=== PATIENT | male | born 1955 | race Caucasian/White ===

== ENCOUNTER 2021-03-15 01:58 | Emergency (ER) | payer SELFPAY ==
[2021-03-15 02:32] LABS: #Basophils 0.1 thou/uL (0.0-0.2); #Eosinphils 0.4 thou/uL (0.0-0.7); #Lymphocytes 1.6 thou/uL (1.20-3.40); #Monocytes 0.7 thou/uL (0.11-0.59); #Neutrophils 5.2 thou/uL (1.40-6.50); %Basophils 1.1 % (0.0-1.0); %Eosinophils 4.9 % (0.0-10.0); %Monocytes 8.2 % (0.0-10.0); %Neutrophils 65.9 % (42.0-75.0); Hemoglobin 12.3 g/dL (14.0-18.0); Mean Corpuscular HGB CONC 32.8 g/dL (32.0-36.0); Mean Corpuscular Hemoglobin 29.2 pg (27.0-31.0); Mean Corpuscular Volume 89.1 fL (78.0-98.0); Mean Platelet Volume 7.3 fL (7.4-10.4); Platelet Count 233 thou/uL (130-400); RBC Distribution Width 12.5 % (11.5-14.5); White Blood Cell (WBC) Count 7.9 thou/uL (4.8-10.8)
[2021-03-15] MEDS ORDERED: Ibuprofen 200 MG TAB ONE (02:37)
[2021-03-15] MEDS ORDERED: predniSONE 20 MG TAB ONE (02:37)
[2021-03-15 02:53] LABS: ALT (SGPT) 19 U/L (8-55); AST (SGOT) 17 U/L (5-34); Albumin 3.5 g/dL (3.4-4.8); Alkaline Phosphatase 70 U/L (40-110); Anion Gap 11 mmol/L (10-20); BUN (Urea Nitrogen) 22 mg/dL (8.4-25.7); Bilirubin, Total 0.2 mg/dL (0.2-1.2); Calc. Creatinine Clearance 0 mL/min (70-130); Calcium 9.1 mg/dL (7.8-10.44); Carbon Dioxide 27 mmol/L (23-31); Chloride 108 mmol/L (98-107); Globulin 2.5 g/dL (2.4-3.5); Glucose 104 mg/dL (80-115); Sodium 142 mmol/L (136-145)
[2021-03-15] MEDS ORDERED: Acetaminophen 500 MG TAB ONE (03:29)
== END 2021-03-15 04:00 | disposition home or self-care (01) ==
LOC: ERS 01:58
DX: M54.12 Radiculopathy, cervical region (principal); Z87.891 Personal history of nicotine dependence
CPT/HCPCS: 36415; 71045; 80053; 84484; 85025; 93005; J7512

== ENCOUNTER 2022-01-20 03:45 | Inpatient (IN) | payer OTHER ==
[2022-01-20] MEDS ORDERED: Boostrix 0.5 ML (Tdap) VIAL (>/=7 yrs of age) ONE (03:57)
[2022-01-20] MEDS ORDERED: FENTANYL 50 MCG/ML VIAL 50 MCG/ML VIAL ONE ×2 (04:04→05:07)
[2022-01-20 04:14] LABS: #Basophils 0.1 thou/uL (0.0-0.2); #Eosinphils 0.2 thou/uL (0.0-0.7); #Lymphocytes 0.8 thou/uL (1.20-3.40); #Monocytes 0.8 thou/uL (0.11-0.59); #Neutrophils 10.9 thou/uL (1.40-6.50); %Basophils 0.5 % (0.0-1.0); %Eosinophils 1.3 % (0.0-10.0); %Lymphocytes 5.9 % (21.0-51.0); %Neutrophils 86.3 % (42.0-75.0); Hemoglobin 12.8 g/dL (14.0-18.0); Mean Corpuscular HGB CONC 31.9 g/dL (32.0-36.0); Mean Corpuscular Hemoglobin 28.1 pg (27.0-31.0); Mean Platelet Volume 7.3 fL (7.4-10.4); Platelet Count 256 thou/uL (130-400); RBC Distribution Width 12.5 % (11.5-14.5); Red Blood Cell (RBC) Count 4.55 mill/uL (4.70-6.10); White Blood Cell (WBC) Count 12.6 thou/uL (4.8-10.8)
[2022-01-20 04:27] LABS: INR-International Normal Ratio 1.1; Prothrombin Time 14.7 sec (12.0-14.7)
[2022-01-20 04:28] LABS: PTT 30.9 sec (22.9-36.1)
[2022-01-20 04:36] LABS: Acetaminophen Less than 10.0 mcg/mL (10.0-30.0); Alcohol Less than 10 mg/dL (Less than 10); Salicylate Less than 8.0 mg/dL (15.0-30.0)
[2022-01-20 04:38] LABS: ALT (SGPT) 14 U/L (8-55); AST (SGOT) 16 U/L (5-34); Albumin 3.9 g/dL (3.4-4.8); Alkaline Phosphatase 75 U/L (40-110); Anion Gap 12 mmol/L (10-20); BUN (Urea Nitrogen) 15 mg/dL (8.4-25.7); Bilirubin, Total 0.5 mg/dL (0.2-1.2); Calc. Creatinine Clearance 0 mL/min (70-130); Calcium 8.5 mg/dL (7.8-10.44); Carbon Dioxide 23 mmol/L (23-31); Chloride 108 mmol/L (98-107); Estimated GFR 62; Globulin 2.6 g/dL (2.4-3.5); Glucose 125 mg/dL (80-115); Lipase 15 U/L (8-78); Potassium 3.2 mmol/L (3.5-5.1); Protein, Total 6.5 g/dL (5.8-8.1); Sodium 140 mmol/L (136-145)
[2022-01-20 05:05] LABS: Bacteria/HPF None Seen HPF (None Seen); Bilirubin Negative (Negative); Blood, Urine Negative (Negative); Calcium Oxalate Crystals 3+ HPF (None Seen); Clarity Clear (Clear); Glucose, Urine (Dipstick) Normal (Negative); Ketone, Urine Negative (Negative); Leukocyte Negative Leu/uL (Negative); Nitrite Negative (Negative); Protein, Urine (Dipstick) 20 mg/dL (Neg-Trace); RBC/HPF 0-3 HPF (0-3); Specific Gravity, Urine 1.028 (1.002-1.036); Squamous Epithelial 0-3 HPF (0-3); WBC/HPF 0-3 HPF (0-3)
[2022-01-20 05:06] LABS: Urine Culture Reflex No No
[2022-01-20 05:11] LABS: Lactic Acid 1.3 mmol/L (0.5-2.2)
[2022-01-20 05:12] LABS: Amphetamine Detected (NotDetected); Barbiturates Screen Not Detected (NotDetected); Benzodiazepine Screen Not Detected (NotDetected); Cocaine Metabolite Screen Not Detected (NotDetected); Methadone Not Detected (NotDetected); Methamphetamine Detected (NotDetected); Opiate Screen Not Detected (NotDetected); Oxycodone Screen Not Detected (NotDetected); Phencyclidine (PCP) Not Detected (NotDetected); THC/Cannabinoid Screen Not Detected (NotDetected); Tricyclic Screen Not Detected (NotDetected)
[2022-01-20 05:15] LABS: Magnesium 2.1 mg/dL (1.6-2.6); Phosphorus 2.1 mg/dL (2.3-4.7)
[2022-01-20] MEDS ORDERED: Dextrose 50% Abboject 50 ML SYRINGE SLOW IVP PRN (05:59)
[2022-01-20] MEDS ORDERED: TETANUS, DIPHTHERIA TOX,ADULT (TDVAX) 0.5 ML VIAL IM ONE (05:59)
[2022-01-20] MEDS ORDERED: Ondansetron PF 4 MG/2 ML Vial IVP PRN (05:59)
[2022-01-20] MEDS ORDERED: Dextrose 5% in Water 1,000 ML IV PRN (05:59)
[2022-01-20] MEDS ORDERED: Morphine 4 MG/ML VIAL SLOW IVP PRN ×2 (05:59→16:07)
[2022-01-20] MEDS ORDERED: Sodium Chloride 0.9% 1,000 ML IV SCH (06:00)
[2022-01-20] MEDS ORDERED: traMADol HCl 50 MG TAB PO PRN (06:03)
[2022-01-20] MEDS ORDERED: Morphine 4 MG/ML VIAL ONE (06:28)
[2022-01-20] MEDS ORDERED: Lidocaine 1% (PF) 30 ML VIAL ONE ×2 (07:43→13:56)
[2022-01-20] MEDS ORDERED: EPINEPHrine 1 MG/ML AMP ONE ×2 (07:43→13:56)
[2022-01-20] MEDS ORDERED: Potassium Phosphate 30 MMOL in Sodium Chloride 0.9% 250 ML 250 ML IVPB SCH (08:00)
[2022-01-20 10:16] LABS: Actual Bicarbonate (HCO3a) 27.3 mEq/L (22-28); Base Excess (BEa) 0.8 mEq/L (-2.0 to +3.0); CO2 Tension 51.4 mmHg (35.0-45.0); Calcium, Ionized (arterial) 1.16 mmol/L (1.12-1.30); Carboxyhemoglobin (COHb) 0.3 gm% (0.0-3.0); O2 Tension (PaO2), arterial 83.4 mmHg (> 80.0); Potassium - ABG Lab 3.88 mmol/L (3.70-5.30); pH, Arterial 7.34 (7.35-7.45)
[2022-01-20 10:17] LABS: Puncture Site RRA
[2022-01-20 10:36] LABS: SARS-CoV-2 NAA Rapid Test Not Detected (NotDetected)
[2022-01-20] MEDS ORDERED: Iopamidol 370 76% 100 ML VIAL ONE (12:01)
[2022-01-20] MEDS ORDERED: Maxitrol 0.1% Opth Oint 3.5 GM TUBE ONE (12:51)
[2022-01-20] MEDS ORDERED: Neomycin-Polymyxin 1 ML AMP ONE (12:52)
[2022-01-20] MEDS ORDERED: Bacitracin Zinc Ointment 30 gm TUBE ONE (12:52)
[2022-01-20] MEDS ORDERED: Bupivacaine PF 0.5% 30 ML VIAL ONE (12:52)
[2022-01-20] MEDS ORDERED: fentaNYL Citrate/PF 100 MCG/2 ML SYRINGE ONE (13:05)
[2022-01-20 13:06] VITALS: BMI 26.3
[2022-01-20] MEDS ORDERED: Sodium Chloride 0.9% 100 ML ONE (13:14)
[2022-01-20] MEDS ORDERED: CEFAZOLIN 2 GM VIAL ONE (13:14)
[2022-01-20] MEDS ORDERED: Ondansetron PF 4 MG/2 ML Vial ONE (13:31)
[2022-01-20] MEDS ORDERED: PROPOFOL 200 MG/20 ML VIAL ONE (13:31)
[2022-01-20] MEDS ORDERED: PHENYLEPHRINE-NS 100 MCG/ML 10 ML SYRINGE ONE (13:31)
[2022-01-20] MEDS ORDERED: Rocuronium Bromide 10 MG/ML (10ML VIAL) ONE (13:31)
[2022-01-20] MEDS ORDERED: Glycopyrrolate 0.2 MG/ML 5 ML SYRINGE ONE (13:31)
[2022-01-20] MEDS ORDERED: NEOSTIGMINE 3 MG/3 ML SYR 3 MG/3 ML SYRINGE ONE (13:31)
[2022-01-20] MEDS ORDERED: Succinylcholine 200 MG/10 ml SYRINGE FS ONE (13:31)
[2022-01-20] MEDS ORDERED: MINERAL OIL/WHITE PETROLATUM 3.5 GM TUBE ONE (13:49)
[2022-01-20] MEDS: Famotidine 20 MG TAB PO SCH ×3 (13:53→23:51)
[2022-01-20] MEDS: Senokot S 8.6-50 MG TAB PO SCH ×3 (13:53→23:51)
[2022-01-20] MEDS: Gabapentin 300 MG CAP PO SCH ×2 (13:53→15:56)
[2022-01-20] MEDS: Polyethylene Glycol 3350 17 GM Packet PO SCH (13:53)
[2022-01-20] MEDS: Ibuprofen 200 MG TAB PO SCH ×2 (13:54→23:48)
[2022-01-20] MEDS: traMADol HCl 50 MG TAB PO SCH ×3 (13:54→23:49)
[2022-01-20] MEDS: CEFAZOLIN 2 GM in Sodium Chloride 0.9% 100 ML IVPB SCH ×2 (13:54→22:27)
[2022-01-20] MEDS: Acetaminophen 500 MG TAB PO SCH ×3 (13:54→23:49)
[2022-01-20] MEDS: Dexamethasone 4 mg/ml Vial SLOW IVP SCH ×2 (14:22→20:33)
[2022-01-20] MEDS ORDERED: Promethazine HCl 25 MG/ML VIAL IM PRN (16:07)
[2022-01-20] MEDS ORDERED: Promethazine HCl 25 MG/ML VIAL IVPB PRN (16:07)
[2022-01-20] MEDS ORDERED: Ondansetron HCl/PF 4 MG/2 ML Vial IVP PRN (16:07)
[2022-01-20] MEDS ORDERED: HYDROcodone/Acetaminophen 10/325 mg Tablet PO PRN (16:07)
[2022-01-20] MEDS ORDERED: Communication Order-Pharmacy FS PRN (16:15)
[2022-01-20] MEDS ORDERED: CEFAZOLIN 2 GM in Sodium Chloride 0.9% 100 ML IVPB SCH (22:00)
[2022-01-20] MEDS: Aspirin 81 mg Enteric Coated Tablet PO SCH ×2 (22:31→23:50)
[2022-01-21] MEDS: Dexamethasone 4 mg/ml Vial SLOW IVP SCH ×3 (03:00→13:15)
[2022-01-21] MEDS: CEFAZOLIN 2 GM in Sodium Chloride 0.9% 100 ML IVPB SCH (05:30)
[2022-01-21] MEDS: Ibuprofen 200 MG TAB PO SCH ×3 (05:31→20:40)
[2022-01-21] MEDS: Acetaminophen 500 MG TAB PO SCH ×3 (05:31→17:30)
[2022-01-21] MEDS: traMADol HCl 50 MG TAB PO SCH ×3 (05:32→17:31)
[2022-01-21 05:48] LABS: #Basophils 0.1 thou/uL (0.0-0.2); #Lymphocytes 0.3 thou/uL (1.20-3.40); #Monocytes 0.9 thou/uL (0.11-0.59); #Neutrophils 10.9 thou/uL (1.40-6.50); %Basophils 0.4 % (0.0-1.0); %Eosinophils 0.1 % (0.0-10.0); %Lymphocytes 2.6 % (21.0-51.0); %Neutrophils 89.8 % (42.0-75.0); Hemoglobin 11.5 g/dL (14.0-18.0); Mean Corpuscular HGB CONC 31.1 g/dL (32.0-36.0); Mean Corpuscular Volume 90.1 fl (78.0-98.0); Mean Platelet Volume 7.5 fL (7.4-10.4); Platelet Count 226 thou/uL (130-400); RBC Distribution Width 12.5 % (11.5-14.5); Red Blood Cell (RBC) Count 4.09 mill/uL (4.70-6.10); White Blood Cell (WBC) Count 12.1 thou/uL (4.8-10.8)
[2022-01-21 06:27] LABS: Anion Gap 10 mmol/L (10-20); BUN (Urea Nitrogen) 14 mg/dL (8.4-25.7); Calc. Creatinine Clearance 74 mL/min (70-130); Calcium 8.4 mg/dL (7.8-10.44); Carbon Dioxide 26 mmol/L (23-31); Chloride 105 mmol/L (98-107); Estimated GFR 77; Glucose 127 mg/dL (80-115); Phosphorus 3.4 mg/dL (2.3-4.7); Potassium 4.2 mmol/L (3.5-5.1); Sodium 137 mmol/L (136-145)
[2022-01-21] MEDS: Famotidine 20 MG TAB PO SCH ×2 (08:19→20:40)
[2022-01-21] MEDS: Aspirin 81 mg Enteric Coated Tablet PO SCH ×2 (08:19→20:40)
[2022-01-21] MEDS: Polyethylene Glycol 3350 17 GM Packet PO SCH (08:19)
[2022-01-21] MEDS: Senokot S 8.6-50 MG TAB PO SCH ×2 (08:19→20:39)
[2022-01-22] MEDS: traMADol HCl 50 MG TAB PO SCH ×3 (00:08→11:51)
[2022-01-22] MEDS: Acetaminophen 500 MG TAB PO SCH ×3 (00:09→11:51)
[2022-01-22] MEDS: Ibuprofen 200 MG TAB PO SCH ×2 (05:44→15:37)
[2022-01-22] MEDS ORDERED: Sodium Chloride 0.9% 500 ML IV SCH (07:15)
[2022-01-22 08:01] LABS: Hemoglobin 10.2 g/dL (14.0-18.0); Mean Corpuscular HGB CONC 31.3 g/dL (32.0-36.0); Mean Corpuscular Hemoglobin 28.6 pg (27.0-31.0); Mean Corpuscular Volume 91.4 fl (78.0-98.0); Mean Platelet Volume 8.2 fL (7.4-10.4); Platelet Count 223 thou/uL (130-400); RBC Distribution Width 12.7 % (11.5-14.5); Red Blood Cell (RBC) Count 3.56 mill/uL (4.70-6.10); White Blood Cell (WBC) Count 13.6 thou/uL (4.8-10.8)
[2022-01-22] MEDS: Polyethylene Glycol 3350 17 GM Packet PO SCH ×2 (08:13→08:28)
[2022-01-22] MEDS: Famotidine 20 MG TAB PO SCH (08:14)
[2022-01-22] MEDS: Aspirin 81 mg Enteric Coated Tablet PO SCH (08:14)
[2022-01-22] MEDS: Senokot S 8.6-50 MG TAB PO SCH ×2 (08:14→08:28)
[2022-01-22 08:28] LABS: Band 2 % (5-11); Burr Cells SLIGHT = 2-5 cells (100X) (0-1/hpf); Hypochromia SLIGHT = 6-15 cells (100X) (0-5/hpf); Lymphocytes 8 % (21-51); MDiff Complete? YES; Monocytes 10 % (0-10); Neutrophil 79 % (42-75); Platelet Morphology Comment Appears Adequate; Polychromasia SLIGHT = 2-3 cells (100X) (0-2/hpf); Tear Drops SLIGHT = 2-5 cells (100X) (0-1/hpf)
[2022-01-22 14:52] VITALS: BP 109/68; TEMP 97.8
[2022-01-22] MEDS ORDERED: Amoxicillin/Potassium Clav 875 MG TAB PO SCH (21:00)
== END 2022-01-22 16:30 | disposition home or self-care (01) | DRG 502 ==
LOC: ERS 03:45 → SURG B 07:30
PROVIDERS: ADMIT Specialist; ATTEND Specialist
PROC: 0QSN04Z Reposition Right Metatarsal with Internal Fixation Device, Open Approach (ICD-10-PCS; principal; 2022-01-20)
PROC: 0JQ00ZZ Repair Scalp Subcutaneous Tissue and Fascia, Open Approach (ICD-10-PCS; 2022-01-20)
PROC: 0CQ00ZZ Repair Upper Lip, Open Approach (ICD-10-PCS; 2022-01-20)
PROC: 0JQ10ZZ Repair Face Subcutaneous Tissue and Fascia, Open Approach (ICD-10-PCS; 2022-01-20)
DX: S92.311B Displaced fracture of first metatarsal bone, right foot, initial encounter for open fracture (principal); S92.321B Displaced fracture of second metatarsal bone, right foot, initial encounter for open fracture; S92.331B Displaced fracture of third metatarsal bone, right foot, initial encounter for open fracture; S92.341B Displaced fracture of fourth metatarsal bone, right foot, initial encounter for open fracture; Z20.822 Contact with and (suspected) exposure to COVID-19; S01.83XA Puncture wound without foreign body of other part of head, initial encounter; S01.81XA Laceration without foreign body of other part of head, initial encounter; S01.511A Laceration without foreign body of lip, initial encounter; S01.01XA Laceration without foreign body of scalp, initial encounter; E87.6 Hypokalemia; E83.39 Other disorders of phosphorus metabolism; Z98.890 Other specified postprocedural states; V28.49XA Other motorcycle driver injured in noncollision transport accident in traffic accident, initial encounter; Y92.410 Unspecified street and highway as the place of occurrence of the external cause; Z79.899 Other long term (current) drug therapy
CPT/HCPCS: 36415; 36600; 70450; 70486; 70498; 71045; 71260; 72125; 72170; 74177; 80048; 80053; 80306; 80307; 81001; 82805; 83605; 83690; 83735; 84100; 84484; 85025; 85610; 85730; 86850; 86870; 86900; 86901; 90715; 93005; 97139; C1713; G0390; J0171; J1100; J2001; J2270; J2405; J2704; J3490; J7030; J7050; Q9967; S0020; U0002

== ENCOUNTER 2022-05-19 20:26 | Emergency (ER) | payer MEDICARE, OTHER ==
[~2022-05-19 20:26] MED LIST: Iopamidol-370 76% 500 ML 1 ML ONE
[2022-05-19] MEDS ORDERED: Ketorolac Tromethamine 30 MG/ML VIAL ONE (21:22)
[2022-05-19 21:25] LABS: #Basophils 0.1 thou/uL (0.0-0.2); #Eosinphils 0.3 thou/uL (0.0-0.7); #Lymphocytes 1.1 thou/uL (1.20-3.40); #Monocytes 1.2 thou/uL (0.11-0.59); #Neutrophils 8.5 thou/uL (1.40-6.50); %Basophils 0.6 % (0.0-1.0); %Eosinophils 2.6 % (0.0-10.0); %Lymphocytes 9.7 % (21.0-51.0); %Monocytes 10.5 % (0.0-10.0); %Neutrophils 76.5 % (42.0-75.0); Hemoglobin 11.3 g/dL (14.0-18.0); Mean Corpuscular HGB CONC 31.9 g/dL (32.0-36.0); Mean Corpuscular Volume 81.7 fl (78.0-98.0); Mean Platelet Volume 7.6 fL (7.4-10.4); Platelet Count 246 10x3/uL (130-400); RBC Distribution Width 13.9 % (11.5-14.5); Red Blood Cell (RBC) Count 4.33 mill/uL (4.70-6.10); White Blood Cell (WBC) Count 11.2 10x3/uL (4.8-10.8)
[2022-05-19 21:40] LABS: Prothrombin Time 13.7 sec (12.0-14.7)
[2022-05-19 21:48] LABS: ALT (SGPT) 15 U/L (8-55); AST (SGOT) 16 U/L (5-34); Albumin 3.8 g/dL (3.4-4.8); Alkaline Phosphatase 101 U/L (40-110); Anion Gap 13 mmol/L (10-20); BUN (Urea Nitrogen) 25 mg/dL (8.4-25.7); Bilirubin, Total 0.4 mg/dL (0.2-1.2); Calc. Creatinine Clearance 0 mL/min (70-130); Calcium 8.9 mg/dL (7.8-10.44); Carbon Dioxide 23 mmol/L (23-31); Chloride 108 mmol/L (98-107); Estimated GFR 81; Globulin 3.4 g/dL (2.4-3.5); Glucose 106 mg/dL (80-115); Lipase 11 U/L (8-78); Protein, Total 7.2 g/dL (5.8-8.1); Sodium 140 mmol/L (136-145)
[2022-05-19] MEDS ORDERED: Mag-Al 1200 mg/1200 mg/30 ML UDCUP ONE (22:12)
[2022-05-19] MEDS ORDERED: Lidocaine Viscous Sol 2% 15 ml UD Cup ONE (22:12)
[2022-05-19 22:38] LABS: Acetaminophen Less than 10.0 mcg/mL (10.0-30.0); Alcohol Less than 10 mg/dL (Less than 10); Salicylate Less than 8.0 mg/dL (15.0-30.0)
[2022-05-19 23:59] LABS: Bilirubin Negative (Negative); Blood, Urine Negative (Negative); Clarity Clear (Clear); Glucose, Urine (Dipstick) Normal (Negative); Ketone, Urine Negative (Negative); Leukocyte Negative Leu/uL (Negative); Nitrite Negative (Negative); Protein, Urine (Dipstick) Negative (Neg-Trace); Specific Gravity, Urine 1.031 (1.002-1.036); Urobilinogen Normal mg/dL (Less than 2); pH, Urine 5.5 (5.0-9.0)
[2022-05-20 00:04] LABS: Amphetamine Detected (NotDetected); Barbiturates Screen Not Detected (NotDetected); Benzodiazepine Screen Not Detected (NotDetected); Cocaine Metabolite Screen Not Detected (NotDetected); Methadone Not Detected (NotDetected); Methamphetamine Detected (NotDetected); Opiate Screen Detected (NotDetected); Oxycodone Screen Not Detected (NotDetected); Phencyclidine (PCP) Not Detected (NotDetected); THC/Cannabinoid Screen Not Detected (NotDetected); Tricyclic Screen Not Detected (NotDetected)
== END 2022-05-20 01:16 | disposition home or self-care (01) ==
LOC: ERS 20:26
DX: J69.0 Pneumonitis due to inhalation of food and vomit (principal); M62.830 Muscle spasm of back; D72.829 Elevated white blood cell count, unspecified; I10 Essential (primary) hypertension
CPT/HCPCS: 36415; 71045; 71275; 72125; 80053; 80306; 80307; 81003; 83690; 83735; 84443; 84484; 85025; 85610; 85730; 93005; 94760; 96374; J1885; Q9967